=== PATIENT | male | born 1945 | race Hispanic/Latino ===

== ENCOUNTER 2019-05-28 09:56 | Emergency (ER) | payer MEDICARE, OTHER ==
[~2019-05-28] VITALS: Ht 170.2 cm; Wt 68.9 kg
[~2019-05-28 09:56] MED LIST: CARVEDILOL12.5 MG PO; LINZESS PO; NEXIUM20 MG PO; NIFEDIPINE ER60 M1 PO; SIMVASTATIN20 MG PO; STOOL SOFTENER100 M1 PO; VITAMIN D PO; Z.0.ASPIR 8181 MG PO; Z.0.CARVEDILOL3.125 PO; Z.0.CRESTOR20 MG PO; Z.0.LISINOPRIL30 MG PO; Z.0.PLAVIX75 MG PO; Z.0.PRILOSEC OTC20 M PO
--- OUTSIDE RECORDS SUMMARY | 2019-05-28 10:00 | XMS REPORT ---
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 Allergies, Adverse Reactions, Alerts This patient has no known allergies or adverse reactions. Medications This patient has no known medications. Encounters Start Date/Time End Date/Time Encounter Type Admission Type Attending [facility] Facility Care Department Encounter ID 2018-12-24 08:34:00 2018-12-24 08:34:00 Emergency E [id number] 2018-12-18 21:36:00 2018-12-18 21:36:00 Outpatient E [facility] MED [id number]
--- NOTE | 2019-05-28 10:41 | Diagnostic Imaging Report ---
EXAMINATION: TIB/FIB 2VW RT - HOPD INDICATION: Trauma COMPARISON: None FINDINGS: AP, lateral, and oblique images of the tibia and fibula were obtained. No acute fracture or dislocation. There is an old healed mildly displaced fracture of the midshaft tibia. The soft tissues appear unremarkable. 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 Scattered atherosclerotic arterial calcifications. IMPRESSION: No acute osseous injury. Old healed tibial mid shaft fracture. Signed by: Guilherme Galvan MD on 05/28/2019 10:37 AM
[2019-05-28] MEDS ORDERED: BACITRACIN ZINC 0.9GM TP ONE ×2 (10:52→11:00)
== END 2019-05-28 10:56 | disposition home or self-care (01) ==
LOC: FSED 09:56
DX: S80.11XA Contusion of right lower leg, initial encounter (principal); W22.09XA Striking against other stationary object, initial encounter; Y93.89 Activity, other specified; Y92.008 Other place in unspecified non-institutional (private) residence as the place of occurrence of the external cause
CPT/HCPCS: 99283

== ENCOUNTER 2020-08-02 09:18 | Emergency (ER) | payer MEDICARE, OTHER ==
[~2020-08-02] VITALS: Ht 170.2 cm; Wt 68.0 kg
[2020-08-02] MEDS ORDERED: ELIQUIS2.5 MG (09:52)
[2020-08-02] MEDS ORDERED: PLAVIX75 MG PO (09:52)
[2020-08-02] MEDS ORDERED: ACETAMINOPHEN325 M1 PO (09:52)
[2020-08-02] MEDS ORDERED: SPIRONOLACTONE25 MG PO (09:52)
[2020-08-02] MEDS ORDERED: PANTOPRAZOLE SO40 MG PO (09:52)
[2020-08-02] MEDS ORDERED: K DUR10 MEQ PO (09:52)
[2020-08-02] MEDS ORDERED: FUROSEMIDE40 MG PO (09:52)
[2020-08-02 10:45] VITALS: BP 81/61
== END 2020-08-02 10:55 | disposition home or self-care (01) ==
LOC: FSED 09:45
DX: S70.02XA Contusion of left hip, initial encounter (principal); S80.01XA Contusion of right knee, initial encounter; W01.0XXA Fall on same level from slipping, tripping and stumbling without subsequent striking against object, initial encounter; Y93.01 Activity, walking, marching and hiking; Y92.512 Supermarket, store or market as the place of occurrence of the external cause; Z79.01 Long term (current) use of anticoagulants; I10 Essential (primary) hypertension; E78.5 Hyperlipidemia, unspecified; I25.10 Atherosclerotic heart disease of native coronary artery without angina pectoris; Z95.810 Presence of automatic (implantable) cardiac defibrillator; Z95.5 Presence of coronary angioplasty implant and graft
CPT/HCPCS: 72170; 99283

== ENCOUNTER 2021-11-02 17:41 | Emergency (ER) | payer MEDICARE, OTHER ==
[~2021-11-02] VITALS: Ht 170.2 cm; Wt 68.0 kg
[~2021-11-02 17:41] MED LIST changes: +ACETAMINOPHEN325 M1 PO; +ELIQUIS2.5 MG; +FUROSEMIDE40 MG PO; +K DUR10 MEQ PO; +PANTOPRAZOLE SO40 MG PO; +PLAVIX75 MG PO; +SPIRONOLACTONE25 MG PO
[2021-11-02] MEDS ORDERED: POTASSIUM CHLORIDE 20 MEQ TAB CR PO STA (18:22)
[2021-11-02] MEDS ORDERED: HYDROXYZINE HCL25 MG PO (18:26)
[2021-11-02] MEDS ORDERED: CERAVE ITCH RE237 ML TOP (18:26)
[2021-11-02 19:04] VITALS: BP 115/72
== END 2021-11-02 18:53 | disposition home or self-care (01) ==
LOC: FSED 17:49
DX: L29.9 Pruritus, unspecified (principal); E87.6 Hypokalemia; R39.2 Extrarenal uremia; I10 Essential (primary) hypertension; I50.9 Heart failure, unspecified; E78.5 Hyperlipidemia, unspecified; I48.91 Unspecified atrial fibrillation; I25.10 Atherosclerotic heart disease of native coronary artery without angina pectoris; Z86.73 Personal history of transient ischemic attack (TIA), and cerebral infarction without residual deficits; Z95.810 Presence of automatic (implantable) cardiac defibrillator; Z95.5 Presence of coronary angioplasty implant and graft
CPT/HCPCS: 80053; 85025; 99282